=== PATIENT | female | born 1940 | race Caucasian/White ===

== ENCOUNTER 2016-05-31 08:54 | Outpatient (CLI) | payer MEDICARE | END 2016-05-31 08:55 | LOC: NAVSJIPCSP 08:54 | PROVIDERS: ATTEND Internal Medicine | DX: E78.5 Hyperlipidemia, unspecified (principal); Z79.899 Other long term (current) drug therapy | CPT/HCPCS: 36415; 80061 ==

== ENCOUNTER 2016-09-28 09:17 | Outpatient (CLI) | payer MEDICARE ==
[2016-09-28 13:10] LABS: Cardiac Risk 3.5 (Less than 4.5)
== END 2016-09-28 09:18 | disposition home or self-care (01) ==
LOC: NAVSJIPCSP 09:17
PROVIDERS: ATTEND Internal Medicine
DX: E78.5 Hyperlipidemia, unspecified (principal); Z79.899 Other long term (current) drug therapy
CPT/HCPCS: 36415; 80061

== ENCOUNTER 2017-01-03 09:39 | Outpatient (CLI) | payer MEDICARE ==
[2017-01-03 12:32] LABS: Cardiac Risk 3.7 (Less than 4.5)
== END 2017-01-03 09:40 | disposition home or self-care (01) ==
LOC: NAVSJIPCSP 09:39
PROVIDERS: ATTEND Internal Medicine
DX: Z79.899 Other long term (current) drug therapy (principal)
CPT/HCPCS: 36415; 80061

== ENCOUNTER 2020-11-03 08:42 | Outpatient (CLI) | payer MEDICARE ==
[2020-11-03] MEDS ORDERED: Iopamidol 370 76% 100 ML VIAL ONE (09:00)
== END 2020-11-03 08:43 | disposition home or self-care (01) ==
LOC: NAV CT 08:42
PROVIDERS: ATTEND Internal Medicine
DX: J01.40 Acute pansinusitis, unspecified (principal); R59.0 Localized enlarged lymph nodes; R91.8 Other nonspecific abnormal finding of lung field; J98.4 Other disorders of lung
CPT/HCPCS: 71260

== ENCOUNTER 2020-11-03 09:01 | Outpatient (CLI) | payer MEDICARE | END 2020-11-03 09:02 | disposition home or self-care (01) | LOC: NAV LAB 09:01 | PROVIDERS: ATTEND Radiology Diagnostic Radiology | DX: Z01.812 Encounter for preprocedural laboratory examination (principal) | CPT/HCPCS: 36415; 71260; 82565; Q9967 ==